=== PATIENT | female | born 1960 | race Caucasian/White ===

== ENCOUNTER 2017-09-20 10:14 | Emergency (ER) | payer MEDICAID ==
[~2017-09-20] VITALS: Ht 152.4 cm; Wt 61.2 kg
[2017-09-20 10:20] VITALS: BP 140/75
[2017-09-20] MEDS ORDERED: IBUPROFEN 600600 M1 PO (10:36)
[2017-09-20] MEDS ORDERED: AUGMENTIN 875-1 EACH PO (10:36)
== END 2017-09-20 11:04 | disposition home or self-care (01) ==
LOC: M.ERS 10:14
DX: L03.113 Cellulitis of right upper limb (principal); M19.90 Unspecified osteoarthritis, unspecified site; W55.01XA Bitten by cat, initial encounter; Y93.89 Activity, other specified; Y92.89 Other specified places as the place of occurrence of the external cause; Y99.8 Other external cause status

== ENCOUNTER 2017-09-24 10:26 | Emergency (ER) | payer MEDICAID ==
[~2017-09-24] VITALS: Ht 152.4 cm; Wt 61.2 kg
[~2017-09-24 10:26] MED LIST: AUGMENTIN 875-1 EACH PO; IBUPROFEN 600600 M1 PO
[2017-09-24 11:43] LABS: ABSOLUTE EOSINOPHILS 0.1 thou/uL (0.0-0.7); ABSOLUTE LYMPHOCYTES 1.6 thou/uL (0.8-5.3); ABSOLUTE MONOCYTES 0.5 thou/uL (0.0-1.2); ABSOLUTE NEUTROPHILS 5.2 thou/uL (1.6-8.1); BASOPHILS 0.3 %; HEMOGLOBIN 14.2 gm/dL (12.0-15.0); LYMPHOCYTES 21.9 %; MCH 31.8 pg (26.0-34.0); MCHC 33.1 g/dL (28.0-37.0); MCV 96.1 fL (80.0-100.0); MONOCYTES 6.8 %; MPV 9.7 fl. (7.2-11.1); NUCLEATED RBCS 0 /100WBC; PLATELET COUNT* 202 thou/uL (150-400); RBC 4.48 mil/uL (4.20-5.00); RDW-CV 13.2 % (10.5-14.5); WBC 7.4 thou/uL (4.0-11.0)
[2017-09-24] MEDS ORDERED: DOXYCYCLINE 10100 MG PO (11:45)
[2017-09-24 11:50] LABS: CALCIUM 9.2 mg/dL (8.5-10.1); CREATININE 0.6 mg/dL (0.6-1.3); POTASSIUM 3.9 mmol/L (3.5-5.1)
[2017-09-24 12:01] LABS: TOTAL BILIRUBIN 0.4 mg/dL (<0.1-1.0); TOTAL PROTEIN 7.4 g/dL (6.4-8.2)
[2017-09-24 12:22] VITALS: BP 136/80
== END 2017-09-24 12:24 | disposition home or self-care (01) ==
LOC: M.ERS 10:26
PROVIDERS: Nurse Practitioner Family
DX: S61.451A Open bite of right hand, initial encounter (principal); M19.90 Unspecified osteoarthritis, unspecified site; F17.210 Nicotine dependence, cigarettes, uncomplicated; W55.01XA Bitten by cat, initial encounter; Y93.89 Activity, other specified; Y92.89 Other specified places as the place of occurrence of the external cause; Y99.8 Other external cause status